=== PATIENT | female | born 1995 | race Caucasian/White ===

== ENCOUNTER 2018-06-07 16:49 | Emergency (ER) | payer MEDICAID ==
[~2018-06-07] VITALS: Ht 149.9 cm; Wt 83.9 kg
[2018-06-07 17:01] VITALS: BP 110/57; Ht 149.9 cm; Wt 83.9 kg
== END 2018-06-07 18:10 | disposition home or self-care (01) ==
LOC: ED 16:49
DX: O23.42 Unspecified infection of urinary tract in pregnancy, second trimester (principal); O21.9 Vomiting of pregnancy, unspecified; Z3A.20 20 weeks gestation of pregnancy
CPT/HCPCS: Q0162